=== PATIENT | male | born 1950 | race Caucasian/White ===

== ENCOUNTER 2017-05-07 05:25 | Inpatient (IN) | payer OTHER ==
[2017-04-15 14:06] VITALS: BMI 22.0
--- NOTE | 2017-04-15 14:43 | PAT Medication Instructions ---
Service Date Apr 15, 2017. Current Home Medication List Hydrocodone/Acetaminophen 10MG/325MG ([place] 10MG/325MG), 1 TAB PO BID Omeprazole (Prilosec), 20 MG PO QAM Tramadol (Ultram), 100 MG PO BID Valsartan (Valsartan), 160 MG PO QAM Medication Instructions For Your Scheduled Surgery - Hold the following medications the morning of surgery: Valsartan (Valsartan), 160 MG PO QAM - Take the following medications the morning of surgery with a sip of water OTHERWISE NOTHING TO EAT OR DRINK AFTER MIDNIGHT: Omeprazole (Prilosec), 20 MG PO QAM Hydrocodone/Acetaminophen 10MG/325MG ([place] 10MG/325MG), 1 TAB PO BID (may take if needed up to 4 hours prior to surgery) Tramadol (Ultram), 100 MG PO BID (may take if needed up to 4 hours prior to surgery) - Take the following medications as scheduled the night before surgery: Hydrocodone/Acetaminophen 10MG/325MG ([place] 10MG/325MG), 1 TAB PO BID Tramadol (Ultram), 100 MG PO BID If you have any questions please call us at [phone] or [phone] or [phone]
--- NOTE | 2017-04-15 15:22 | DIAGNOSTIC IMAGING REPORT ---
CHEST 2 VIEWS ROUTINE HISTORY: Preop. COMPARISON: None. FINDINGS: The lungs are hyperexpanded with apical predominant emphysematous changes. The lungs are clear. No pleural effusions. No pneumothorax. The heart is normal in size. IMPRESSION: No acute process. Emphysema. Electronically signed by: Shahzad Harp M.D. 04/15/2017 3:20 PM Dictated Date/Time: 04/15/2017 3:15 PM
[2017-04-15 16:01] LABS: BASO % 0.6 %; BASO ABS # 0.03 K/uL (0-0.2); COMPLETE YES; EOS % 1.2 %; IG% 0.2 %; LYMPH % 28.7 %; LYMPH ABS # 1.43 K/uL (1.2-3.4); MEAN CELL VOLUME 98.1 fL (80-100); MEAN CORPUSCULAR HEMOGLOBIN 35.3 pg (25-34); MEAN CORPUSCULAR HGB CONC 35.9 g/dl (32-36); MEAN PLATELET VOLUME 9.5 fL (7.4-10.4); MONO % 13.8 %; NEUT % 55.5 %; PLATELET COUNT 321 K/uL (130-400); RED BLOOD COUNT 3.77 M/uL (4.7-6.1); WHITE BLOOD COUNT 4.99 K/uL (4.8-10.8)
[2017-04-15 16:06] LABS: URINE APPEARANCE CLEAR (CLEAR); URINE BILIRUBIN NEG (NEG); URINE COLOR YELLOW; URINE EPITHELIAL CELL AUTO 0-5 /lpf (0-5); URINE NITRITE NEG (NEG); URINE PH 6.5 (4.5-7.5); URINE SPECIFIC GRAVITY 1.007 (1.000-1.030); UROBILINOGEN NEG (NEG); ZZUR CULT IF INDIC CLEAN CATCH NO
[2017-04-15 16:10] LABS: BUN/CREATININE RATIO 8.8 (10-20); CALCIUM 9.1 mg/dl (8.5-10.1); CREATININE 1.1 mg/dl (0.60-1.40); POTASSIUM 4.1 mmol/L (3.5-5.1)
[2017-04-15 16:13] LABS: INR 0.9 (0.9-1.1); PARTIAL THROMBOPLASTIN RATIO 1.2; PROTHROMBIN TIME (PATIENT) 10.1 SECONDS (9.0-12.0)
[2017-04-15 16:32] LABS: MANUAL MICROSCOPIC REQUIRED? NO; REVIEW REQ? NO
[2017-04-16 06:23] LABS: ESTIMATED AVERAGE GLUCOSE 105 mg/dl; HA1C FLAG Normal (Normal)
--- NOTE | 2017-05-06 17:48 | HISTORY & PHYSICAL EXAMINATION ---
DATE OF ADMISSION: 05/07/2017 CHIEF COMPLAINT: Chronic left hip pain. HISTORY OF PRESENT ILLNESS: This is a 66-year-old male patient of Dr. Longoria, complaining of chronic left hip pain, longstanding, now progressively getting worse. The patient has been diagnosed with end-stage osteoarthritis per clinical and radiographic exams. He has failed conservative treatment and wishes to proceed with a left total hip arthroplasty. He has tried anti-inflammatories, narcotic medications and the use of a cane. 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 He only has one kidney on the left. SOCIAL HISTORY: Nonsmoker and nondrinker. PAST SURGICAL HISTORY: 1. Right kidney removal. 2. Back surgery. REVIEW OF SYSTEMS: The patient complains of chronic left hip pain. Otherwise, denies any shortness of breath, chest pain, nausea, vomiting or any other joint complaints. FAMILY HISTORY: Noncontributory. MEDICATIONS: Include omeprazole 20 mg daily, valsartan 160 mg daily, and [place] [employer] as needed. ALLERGIES: No known drug allergies. PHYSICAL EXAMINATION: GENERAL: Well-developed and well-nourished 66-year-old male, in no acute distress. He is alert and oriented x3 and pleasant. HEENT: Normocephalic and atraumatic. Extraocular motions are intact. Pupils are equal and reactive to light. HEART: Regular rate and rhythm. No murmurs are appreciated. LUNGS: Clear. ABDOMEN: Soft and nontender. Bowel sounds are present. EXTREMITIES: Left hip reveals mild flexion contracture. He has pain with passive range of motion with log rolling and internal and external rotation at 90/90 degrees. He has 4/5 strength with limited pain. NEUROLOGIC: Neurovascularly, he is intact in his left lower extremity. DIAGNOSES: Left hip end-stage osteoarthritis, hypertension, sleep apnea, osteoarthritis, spine problems, sciatica, acid reflux, and history of right kidney removal. PLAN: The patient was advised of his diagnoses. Indications, risks, benefits, and postop course have all been reviewed. The patient wishes to proceed with a left total hip arthroplasty. Necessary consent forms, preoperative testing and clearances will be obtained.
[2017-05-07] VITALS (11 sets, daily range): BP systolic 118–167; BP diastolic 63–90; PULSE 50–67; TEMP 36.5–36.9; O2SAT 97–100; Ht 175.3 cm; Wt 68.3 kg
[~2017-05-07] VITALS: Ht 175.3 cm; Wt 68.3 kg
[~2017-05-07 05:25] MED LIST: HYDR-4079 PO; PRLSR20 PO; TRAM-10 PO; VALS-58 PO
[2017-05-07] MEDS ORDERED: LACTATED RINGER'S 1000ML 500 ML IV ONE (06:00)
[2017-05-07] MEDS ORDERED: DEXAMETHASONE 4 MG TAB PO SCH (06:00)
[2017-05-07] MEDS ORDERED: CEFAZOLIN 1000MG/55 ML D5W 55 ML IV SCH (06:00)
[2017-05-07] MEDS: TRANEXAMIC ACID INJ 1,000 MG in SODIUM CHLORIDE 0.9% 100ML 100 ML IV SCH ×2 (06:00→06:30)
[2017-05-07] MEDS ORDERED: LACTATED RINGER'S 1000ML IV SCH (06:00)
[2017-05-07] MEDS ORDERED: FAMOTIDINE 20 MG TAB PO SCH (06:00)
[2017-05-07] MEDS ORDERED: CeleBREX 200 MG CAP PO SCH (06:00)
[2017-05-07] MEDS ORDERED: LACTATED RINGER'S 1000ML 1,000 ML IV SCH (06:00)
[2017-05-07] MEDS ORDERED: ACETAMINOPHEN 500 MG TAB PO SCH (06:00)
[2017-05-07] MEDS ORDERED: METOCLOPRAMIDE HCL 10 MG TAB PO SCH (06:00)
[2017-05-07] MEDS ORDERED: ROPIVACAINE 5MG/ML 30 ML 150 MG, BUPIVACAINE/EPINEPHR 0.5% MPF 30 ML, KETOROLAC TROMETH... INFIL SCH ×6 (06:00)
[2017-05-07] MEDS ORDERED: GABAPENTIN 300 MG CAP PO SCH (06:00)
[2017-05-07] MEDS ORDERED: MIDAZOLAM HCL 1 MG/ML 2ML VIAL ONE (06:25)
[2017-05-07] MEDS ORDERED: LIDOCAINE HCL 2% 2 ML VIAL (20MG/ML) ONE (06:25)
[2017-05-07] MEDS ORDERED: PROPOFOL IV EMULSION 10 MG/ML 20 ML VIAL IV ONE ×2 (06:25→08:57)
[2017-05-07] MEDS ORDERED: FENTANYL CITRATE INJ 50 MCG/1 ML 2 ML VIAL ONE (06:25)
[2017-05-07] MEDS ORDERED: BUPIVACAINE 0.5 % 5 MG/1 ML PF 10ML VIAL ONE (06:30)
[2017-05-07] MEDS ORDERED: BACITRACIN 50000 UNIT VIAL ONE (07:04)
[2017-05-07] MEDS ORDERED: POVIDONE-IODINE OP SOLN 30 ML BTL ONE (07:04)
[2017-05-07] MEDS ORDERED: ORTHO JOINT ANESTHETIC ONE (07:04)
--- NOTE | 2017-05-07 07:25 | History & Physical Bridge Note ---
H&P Re-Evaluation Bridge Note: I have examined the patient, reviewed the History & Physical and in the interval since the performance of the History & Physical I have noted the following changes of clinical significance: No changes noted
[2017-05-07] MEDS ORDERED: EpHEDrine SULFATE INJ 50 MG/ML AMP IV PRN (08:15)
[2017-05-07] MEDS ORDERED: FENTANYL CITRATE INJ 50 MCG/1 ML 2 ML VIAL IV PRN (08:15)
[2017-05-07] MEDS ORDERED: ONDANSETRON INJ 2 MG/ML 2 ML VIAL IV PRN ×2 (08:15→10:00)
[2017-05-07] MEDS ORDERED: ATROPINE SULFATE 0.1 MG/ML 5ML SYR IV PRN (08:15)
--- NOTE | 2017-05-07 09:38 | [facility] Post Operative Brief Note ---
Immediate Operative Summary Operative Date May 07, 2017. Pre-Operative Diagnosis Left hip end-stage osteoarthritis Post-Operative Diagnosis Left hip end-stage osteoarthritis,chronic abductor tear Procedure(s) Performed Left total hip arthroplasty,abductor repair Surgeon Dr. Longoria Assistant Softball Coach Surgeon(s) Dipak Omer PA-C Estimated Blood Loss 50cc Findings end stage oa synovitis abductor tear chronic Specimens A. Left femoral head Drains 2 hemovac Complication(s) None Disposition Recovery Room / PACU
[2017-05-07] MEDS ORDERED: ZOLPIDEM TARTRATE 5 MG TAB PO PRN (10:00)
[2017-05-07] MEDS ORDERED: TRAMADOL HCL 50 MG TAB PO PRN (10:00)
[2017-05-07] MEDS ORDERED: MoRPHine SULFATE 2 MG/ML CARP IV PRN (10:00)
[2017-05-07] MEDS ORDERED: BISACODYL 10 MG SUPP PR PRN (10:00)
[2017-05-07] MEDS ORDERED: MAGNESIUM HYDROXIDE SUSP 30 ML UDC PO PRN (10:00)
--- NOTE | 2017-05-07 10:26 | Anesthesiology Progress Note ---
Anesthesia Post Op Note Date & Time May 07, 2017 at 10:26 Vital Signs Pain Intensity: 0 Vital Signs Past 12 Hours Date Time Temp Pulse Resp B/P (MAP) Pulse Ox O2 Delivery O2 Flow Rate FiO2 05/07/17 10:10 50 12 139/79 100 Oxymask 10 05/07/17 10:00 36.5 60 20 144/74 100 Oxymask 10 05/07/17 05:50 36.6 60 20 157/86 100 Room Air Notes Mental Status: alert / awake / arousable, participated in evaluation Pt Amnestic to Procedure: Yes Nausea / Vomiting: adequately controlled Pain: adequately controlled Airway Patency, RR, SpO2: stable & adequate BP & HR: stable & adequate Hydration State: stable & adequate Neuraxial Anesthesia: was administered, sensory block is resolving Anesthetic Complications: no major complications apparent
--- NOTE | 2017-05-07 10:30 | DIAGNOSTIC IMAGING REPORT ---
LEFT PELVIS/UNILATERAL HIP 1 VIEW CLINICAL HISTORY: 66 years-old Male presenting with left degenerative hip disease. TECHNIQUE: Single frontal view of the pelvis and crosstable lateral view of the left hip were obtained. COMPARISON: None. FINDINGS: Postsurgical changes of total left hip arthroplasty. Surgical drain in place. Soft tissue emphysema and overlying skin stacey noted. The superior acetabulum has an abnormal radiolucency raising concern for fracture. Partially visualized lower lumbar fusion hardware. Remainder of pelvis within normal limits. IMPRESSION: Postsurgical changes of total left hip arthroplasty. Abnormal radiolucency along the superior acetabulum raising concern for fracture. Further evaluation with cross-sectional imaging to be considered. Electronically signed by: Brian Amor M.D. 05/07/2017 10:29 AM Dictated Date/Time: 05/07/2017 10:28 AM
[2017-05-07] MEDS ORDERED: MoRPHine SULFATE 4 MG/ML 1 ML CARP\\VIAL IV PRN (11:45)
[2017-05-07] MEDS: D5W AND 1/2NSS + 20MEQ KCL 1,000 ML IV SCH ×2 (11:49→21:39)
[2017-05-07] MEDS: OXYCODONE HCL IR 5 MG TAB (IMMEDIATE RELEASE) PO PRN ×4 (13:17→23:25)
[2017-05-07] MEDS: ACETAMINOPHEN 500 MG TAB PO SCH ×2 (14:06→21:39)
[2017-05-07] MEDS ORDERED: PNEUMOCOCCAL POLYSACCHARIDES 25 MCG/0.5 ML VIAL/SYR IM. ONE (14:45)
[2017-05-07] MEDS ORDERED: PNEUMOCOCCAL ADMINISTRATION CHARGE ONE (14:45)
--- NOTE | 2017-05-07 15:20 | Progress Note ---
Subjective Date of Service: May 07, 2017. Subjective Pt evaluation today including: conversation w/ patient, conversation w/ family , physical exam, chart review, lab review, review of inpatient medication list feeling good no complaints. discussed role of hospitalist in medical management. discussed HTN. then discussed low Na noted on preop labs - notes that PCP saw this, ordered a recheck, but he hasn't heard since. on directed questioning he () note that he does drink a lot of beer - ~4-5 nights a week he'll go to the club or a friend's house and then it's not uncommon for him to drink a six pack. doesn't keep beer at home. does have wine and liquor but notes that he basically never drinks at home. relates that the guys around him basically are doing the same thing, doesn't make much of the idea of drinking 6 beers in one night being excessive, notes actually "i'll go over to watch the pens and have a six pack, but it's never more than a six pack" also notes he believes he's got BPH - hesitancy and weaker stream, occassional frequency Problem List Medical Problems: (1) Encounter for wound re-check Status: Acute Review of Systems ros otherwise negative except for as above Objective Vital Signs Date Time Temp Pulse Resp B/P (MAP) Pulse Ox O2 Delivery O2 Flow Rate FiO2 05/07/17 14:00 58 16 146/81 (102) 100 05/07/17 13:00 58 16 160/89 (112) 99 05/07/17 11:51 50 16 167/82 (110) 100 Nasal Cannula 1.0 05/07/17 11:30 52 16 164/90 (114) 100 05/07/17 10:55 99 Nasal Cannula 2.0 05/07/17 10:55 Nasal Cannula 2.0 05/07/17 10:55 36.7 56 16 135/80 (98) 99 Nasal Cannula 2.0 05/07/17 10:45 51 16 123/75 99 Nasal Cannula 2 05/07/17 10:30 37.1 50 16 137/76 99 Nasal Cannula 2 05/07/17 10:20 52 20 140/74 100 Oxymask 10 05/07/17 10:10 50 12 139/79 100 Oxymask 10 05/07/17 10:00 36.5 60 20 144/74 100 Oxymask 10 05/07/17 05:50 36.6 60 20 157/86 100 Room Air Physical Exam General Appearance: no apparent distress Eyes: EOMI ENT: hearing grossly normal Neck: trachea midline Respiratory/Chest: no respiratory distress, no accessory muscle use Neurologic/Psychiatric: 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 no specific treatment at this time, hopefully will follow through w cessation EtOH abuse -follow for withdrawal -thiamine, folate BPH w LUTS -flomax and proscar, outpt f/u DVT proph -per ortho
[2017-05-07] MEDS ORDERED: LORAZEPAM 2 MG/ML 1 ML VIAL IV PRN (15:30)
[2017-05-07] MEDS ORDERED: LORAZEPAM 1 MG TAB PO PRN (15:30)
[2017-05-07] MEDS ORDERED: THIAMINE HCL 100 MG TAB PO ONE (16:00)
[2017-05-07] MEDS ORDERED: LORAZEPAM INJ 1 MG in SYRINGE 0.5 ML IV PRN (16:00)
[2017-05-07] MEDS ORDERED: TAMSULOSIN HCL 0.4 MG CAP PO ONE (16:00)
[2017-05-07] MEDS: CEFAZOLIN IV 1,000 MG in DEXTROSE 5% 50ML 50 ML IV SCH ×2 (16:20→23:25)
[2017-05-07] MEDS: TAMSULOSIN HCL 0.4 MG CAP PO SCH (20:50)
[2017-05-07] MEDS: ASPIRIN 81 MG ECTAB PO SCH (20:50)
[2017-05-07] MEDS: DOCUSATE SODIUM 100 MG CAP PO SCH (20:50)
[2017-05-07] MEDS: OXYCODONE HCL 10 MG TABCR (OXYCONTIN) PO SCH (20:50)
[2017-05-08] VITALS (7 sets, daily range): BP systolic 120–133; BP diastolic 71–80; PULSE 56–79; TEMP 36.7–36.9; O2SAT 95–100
[2017-05-08] MEDS ORDERED: PANTOprazole SOD 40 MG TAB PO SCH
--- NOTE | 2017-05-08 02:04 | OPERATIVE REPORT ---
DATE OF OPERATION: 05/07/2017 INDICATION FOR PROCEDURE: The patient is a 66-year-old male with chronic progressive pain in his left hip, diagnosed with osteoarthritis both of his hips radiographically, left hip has severe osteoarthritis. He has superior lateral subluxation, bone on bone, some bone loss noted at this time. PREOPERATIVE DIAGNOSIS: End-stage osteoarthritis, left hip. 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 PROCEDURE: Left total hip arthroplasty and repair of chronic abductor tear gluteus medius. SURGEON: Constantino Longoria MD [facility] [employer] TECHNICIAN: RAQUEL Jackson ANESTHESIA: Spinal and IV sedation. OPERATIVE PROCEDURE: The patient was taken to the operating room, anesthetized under IV sedation and spinal anesthetic. He was placed supine on the operating room table. He was placed onto a sacral pad. He had a towel roll placed under his lumbar spine for support. His left foot was placed on to a foot roll to flex his knee 90 degrees and hip 60 degrees as needed. The bed was placed in some Trendelenburg and tilted to the right which exposed the left acetabulum. The left hip was sterilely prepped and draped in usual sterile fashion. The patient is a thin individual and actually had reasonably good range of motion despite the severity of his osteoarthritis. After the hip was sterilely prepped and draped with ChloraPrep, a longitudinal incision was made over the lateral hip. A Hardinge type approach was performed to the left hip. Skin was incised sharply. Subcutaneous flaps were elevated. The fascia irma was divided longitudinally and the gluteus chapis fascia was split proximally. This revealed chronic trochanteric bursitis with a crescent-shaped tear of the gluteus medius at the greater trochanter, made into the region. Tear was about 3 cm wide. The gluteus medius was then split between its anterior 40% and posterior 60% and then minimus was split and divided off the capsule inferiorly and then the capsule was divided down to the hip joint revealing synovitis of hip, joint effusion and superior lateral subluxation of the hip. There is grade 4 DJD in the hip joint. An incision was made releasing the adductor tendon that remained incorporating the chronic tear into our gluteus medius takedown and then splitting the vastus lateralis to about 3 cm. Muscular capsular flap was elevated off the hip joint and neck of the femur. The hip was then dislocated with flexion and external rotation. The Edgard Accolade II tapered stem was used. We used a cutting guide for that stem to make a cut 15 mm proximal to the lesser trochanter in neutral anteversion. Head and neck fragment were removed and measured about 52 mm in diameter. Head had peripheral osteophytes with exposed eburnated bone. At this time, we released the anterior capsule, and resected some of the capsule that was marked thickened synovium in the remaining joint that was excised. Soft tissue in the acetabular fossa was resected to visualize the inner table, and then some of the large osteophytes were resected and the acetabular labrum was resected sharply. We placed a double angled inferior ischial retractor and a blunt Evette retractor anteriorly. We did use a self-retaining superior retractor and was impacted directly into the ileum. The acetabulum had good exposure. At this time, first we used a 46 mm diameter reamer to medialize the reaming to the inner table then increased sizd reamers in sequential increments up to a 54, which had good fit and fill. We chose PSL cup. A 54 PSL cup was impacted in position at approximately 45 degrees of abduction and 15 degrees of anteversion. With tight press fit, we did put additional two 6.5 mm screws in the posterior superior quadrant, 20 and 25 mm screws were used. Excellent fixation was obtained. Then we used the 36 mm 10 degree offset liner with the offset posterior inferiorly placed. The liner was assessed to be stable. Then attention was taken to the femoral preparation. A box osteotome was first used followed by a canal reamer, followed by sequential broaches up to a size 5, which had good fit and fill, and 132 degree neck angle was chosen based on preoperative templating. A +0 neck length gave equal leg lengths and stability through full range of motion and soft tissue tension on the gluteus medius was satisfactory. The trials were removed, and after further irrigation with antibiotic solution the final component was impacted in position. We used the Accolade II size 5 stem, 132 degree neck angle. Then the Biolox ceramic 36 mm head was placed on to that. This was reduced to the acetabulum, verified leg lengths and stability and then repaired the gluteus medius. The medius was repaired with transosseous transtrochanteric #5 FiberWire sutures. These were placed with Migel-Robi suture technique through the gluteus medius tendon. We used some lateral row interrupted #2 Fiberwire suture and [id number] sutures where there was tissue available for lateral row fixation. The minimus was repaired with xulbuj-lr-bqoyf #1 Vicryl sutures and then the split in the medius was repaired with interrupted atgotw-om-cahnf #1 Vicryl sutures. The vastus lateralis split was closed with fksvnn-ak-wkzbo #1 Vicryl sutures. The abductor repair was secure. Then went ahead and repaired the fascia irma and the gluteus chapis fascia with pwlwnp-ie-koqak #1 Vicryl sutures. Subcutaneous tissues closed with interrupted 2-0 Vicryl and the skin was closed with stacey. We did place 2 Hemovac drains into the joint and brought out laterally prior to closure. We also did a Betadine soak and we also did an Orthomix injection. The blood loss was estimated about 100 mL and patient tolerated the procedure well. RAQUEL Jackson was my assistant winemaker. He functioned as family and divorce legal assistant for the entire procedure. He assisted in leg positioning, soft tissue retraction, instrument management and he performed the outer fascial and subcutaneous closure and skin closure, and will participate in postoperative care. I attest to the content of the Intraoperative Record and any orders documented therein. Any exceptions are noted below. PÉREZ
[2017-05-08] MEDS: OXYCODONE HCL IR 5 MG TAB (IMMEDIATE RELEASE) PO PRN ×4 (04:04→17:52)
[2017-05-08] MEDS: ACETAMINOPHEN 500 MG TAB PO SCH ×3 (05:58→21:37)
[2017-05-08 06:25] LABS: BASO % 0.1 %; BASO ABS # 0.01 K/uL (0-0.2); COMPLETE YES; EOS % 0.3 %; HEMATOCRIT 27.9 % (42-52); IG% 0.1 %; LYMPH % 19.6 %; LYMPH ABS # 1.75 K/uL (1.2-3.4); MEAN CELL VOLUME 98.9 fL (80-100); MEAN CORPUSCULAR HEMOGLOBIN 35.5 pg (25-34); MEAN CORPUSCULAR HGB CONC 35.8 g/dl (32-36); NEUT % 68.9 %; PLATELET COUNT 252 K/uL (130-400); RED BLOOD COUNT 2.82 M/uL (4.7-6.1); WHITE BLOOD COUNT 8.91 K/uL (4.8-10.8)
[2017-05-08 06:53] LABS: BUN/CREATININE RATIO 13.2 (10-20); CALCIUM 8.4 mg/dl (8.5-10.1); CREATININE 1.3 mg/dl (0.60-1.40); POTASSIUM 4.3 mmol/L (3.5-5.1)
[2017-05-08] MEDS: D5W AND 1/2NSS + 20MEQ KCL 1,000 ML IV SCH (08:00)
--- NOTE | 2017-05-08 08:12 | Orthopedic Progress Note ---
Orthopedic Progress Note Date of Service May 08, 2017. Subjective Post OP Day: 1 Reports: feeling well, pain controlled w PO medications, Denies: complaints, chest pain, SOB, nausea / vomiting, light headedness, calf pain Additional Notes: Na+ 131 Objective calves soft nontender, N/V intact, capillary refill less than 2 sec., dressing C /D/I, A&O x3, toes mobile Date Time Temp Pulse Resp B/P (MAP) Pulse Ox O2 Delivery O2 Flow Rate FiO2 05/08/17 04:00 36.8 59 16 133/79 (97) 100 Room Air 05/07/17 23:25 Room Air 05/07/17 22:48 36.8 67 16 118/63 (81) 99 Room Air 05/07/17 20:44 36.9 63 16 120/71 (87) 97 Room Air 05/07/17 19:13 36.6 64 16 146/79 (101) 99 Room Air 05/07/17 16:00 99 Nasal Cannula 1.0 05/07/17 15:13 36.5 55 16 146/79 (101) 99 Nasal Cannula 1.0 05/07/17 14:00 58 16 146/81 (102) 100 05/07/17 13:00 58 16 160/89 (112) 99 05/07/17 11:51 50 16 167/82 (110) 100 Nasal Cannula 1.0 05/07/17 11:30 52 16 164/90 (114) 100 05/07/17 10:55 99 Nasal Cannula 2.0 05/07/17 10:55 Nasal Cannula 2.0 05/07/17 10:55 36.7 56 16 135/80 (98) 99 Nasal Cannula 2.0 05/07/17 10:45 51 16 123/75 99 Nasal Cannula 2 05/07/17 10:30 37.1 50 16 137/76 99 Nasal Cannula 2 05/07/17 10:20 52 20 140/74 100 Oxymask 10 05/07/17 10:10 50 12 139/79 100 Oxymask 10 05/07/17 10:00 36.5 60 20 144/74 100 Oxymask 10 Laboratory Results 24 Hours: Test 05/08/17 05:34 White Blood Count 8.91 K/uL Red Blood Count 2.82 M/uL Hemoglobin 10.0 g/dL Hematocrit 27.9 % Mean Corpuscular Volume 98.9 fL Mean Corpuscular Hemoglobin 35.5 pg Mean Corpuscular Hemoglobin Concent 35.8 g/dl Platelet Count 252 K/uL Mean Platelet Volume 9.0 fL Neutrophils (%) (Auto) 68.9 % Lymphocytes (%) (Auto) 19.6 % Monocytes (%) (Auto) 11.0 % Eosinophils (%) (Auto) 0.3 % Basophils (%) (Auto) 0.1 % Neutrophils # (Auto) 6.13 K/uL Lymphocytes # (Auto) 1.75 K/uL Monocytes # (Auto) 0.98 K/uL Eosinophils # (Auto) 0.03 K/uL Basophils # (Auto) 0.01 K/uL Assessment & Plan Assessment: POD #1, Left ZAY ETOH abuse Plan: PT/ OT DVT proph- ASA D/C planning- Home w HH likely Friday Monitor signs of withdrawal Appreciate medicine input. Inhouse Planning Pain Management: Oxycontin, Morphine, PO Tylenol, Oxy IR DVT Prophylaxis: TEDs, SCDs, ASA Discharge Planning Discharge Planning: home with home health Pain Management: Oxycontin, PO Tylenol, Oxy IR DVT Prophylaxis: TEDs, ASA Therapy: Physical Therapy, Occupational Therapy
--- NOTE | 2017-05-08 08:13 | Discharge Instructions ---
Discharge Instructions Date of Service May 08, 2017. Admission Reason for Admission: Left Hip Degenerative Joint Disease Discharge Discharge Diagnosis / Problem: Left ZAY Discharge Goals Goal(s): Improve function Activity Recommendations Activity Limitations: as noted below . Instructions / Follow-Up Instructions / Follow-Up ACTIVITY RECOMMENDATIONS: SELF CARE INSTRUCTIONS AFTER TOTAL HIP REPLACEMENT Until the incision and soft tissues around your hip have healed, there is a possibility that the hip prosthesis could dislocate. A. Observe the following precautions to prevent dislocation: 1. Don't bend your hip greater than 90 degrees. 2. Avoid crossing your legs or ankles while standing or lying. 3. Sit with your feet placed 6 inches apart. 4. When sitting, keep your knees below your hips. Sit on a firm surface, avoid deep, soft chairs and couches. Use an elevated toilet seat in the bathroom. 5. Don't bend over at the waist. Use a long handled shoehorn and a sock aid to help you put on your shoes and socks. A water manager can help you pickle solution maker objects that are too high or too low to reach. 6. Keep car riding to a minimum for at least one month after surgery. B. Your balance may be shaky for a while. Use crutches or a walker until directed by your doctor. C. Use hand rails when walking on stairs. D. Wear low heeled shoes with non-slip soles. E. Be sure that your floors are free of things that could trip you - throw rugs , electrical cords, small objects. Avoid wet and waxed floors, especially with crutches and canes. F. Try to walk several times a day with rest periods between. G. Continue with all the exercises taught to you in the hospital. Again, make walking a part of your daily routine. SPECIAL CARE INSTRUCTIONS: VERY IMPORTANT TO READ AND REVIEW A. You may still be at risk for phlebitis and blood clots. 1. Wear surgical stockings (AUDREY hose) for 2 weeks after surgery to improve circulation and reduce swelling. 2. Take Aspirin 81mg twice daily for 4 weeks or as directed by your doctor. This is your blood thinner. 3. High risk patients may be prescribed a stronger blood thinner if necessary. 4. If you are on Coumadin normally, your family doctor/deep fat cook fry should monitor your blood work. Expect a phone call the day of or the day after bloodwork is drawn to adjust your dosage. B. You must take antibiotics before having dental work, bladder, bowel and other surgery. Your doctor will provide you with a permanent card to carry describing precautions. C. Call [facility] if you have a fever, redness or swelling around the incision, cloudy drainage from incision, or sudden increase in pain in your hip, not relieved by your regular pain medication. D. Please call the office at if you have any concerns or questions about your operation or recovery. * YOU MAY SHOWER, NO TUB BATHS UNTIL CLEARED BY YOUR DOCTOR. * WEAR AUDREY HOSE 20 HOURS PER DAY FOR 2 WEEKS. * YOU SHOULD USE A WALKER OR CRUTCHES FOR 2-4 WEEKS. THIS WILL HELP PREVENT STRAIN ON YOUR HIP MUSCLE AND ALLOW IT TO HEAL PROPERLY. YOU MAY WEAN TO A CANE TOLERATED. * MOST PATIENTS WILL HAVE HOME NURSING FOR THERAPY. IF YOU DECIDE TO DO OUTPATIENT PHYSICAL THERAPY, PLEASE SCHEDULE THIS 3 TIMES PER WEEK. * YOU MAY HAVE A LARGE, BAND-SEBASTIAN LIKE DRESSING (SILVERON). THIS WILL REMAIN ON YOUR INCISION FOR 7 DAYS, THEN CAN BE REMOVED. IF INCISION IS LEAKING THROUGH DRESSING, PLEASE CALL THE OFFICE . FOLLOW UP VISIT: If appointment is not already scheduled: Please call [facility] to make a follow-up appointment for 2 weeks after your surgery at . Current Hospital Diet Patient's current hospital diet: Regular Diet Discharge Diet Recommended Diet: Regular Diet Procedures Procedures Performed: Left total hip arthroplasty,abductor repair Pending Studies Studies pending at discharge: no Laboratory Results Hemoglobin A1c Test 04/15/17 14:49 Range/Units Estimated Average Glucose 105 mg/dl Hemoglobin A1c 5.3 4.5-5.6 % Medical Emergencies . Who to Call and When: Medical Emergencies: If at any time you feel your situation is an emergency, please call 911 immediately. . Non-Emergent Contact Non-Emergency issues call your: Primary Care Provider . "Provider Documentation" section prepared by Dipak Omer. . VTE Core Measure Inpt VTE Proph given/why not?: Other Anticoagulation (asa), T.E.Aden Gomez, SCD's [place] Drug Monitoring Program Search Results: patient reviewed within database, no issues identified
[2017-05-08] MEDS: ASPIRIN 81 MG ECTAB PO SCH ×2 (08:38→21:25)
[2017-05-08] MEDS: DOCUSATE SODIUM 100 MG CAP PO SCH ×2 (08:39→21:25)
[2017-05-08] MEDS: MULTIVITAMIN TAB PO SCH (08:39)
[2017-05-08] MEDS: THIAMINE HCL 100 MG TAB PO SCH (08:39)
[2017-05-08] MEDS: PANTOprazole SOD 40 MG TAB PO SCH (08:39)
[2017-05-08] MEDS: FINASTERIDE 5 MG TAB PO SCH (08:39)
[2017-05-08] MEDS: OXYCODONE HCL 10 MG TABCR (OXYCONTIN) PO SCH ×2 (08:40→21:25)
--- NOTE | 2017-05-08 08:55 | Anesthesiology Progress Note ---
Anesthesia Post Op Note Date & Time May 08, 2017 at 08:54 Vital Signs Pain Intensity: 3 Vital Signs Past 12 Hours Date Time Temp Pulse Resp B/P (MAP) Pulse Ox O2 Delivery O2 Flow Rate FiO2 05/08/17 08:36 95 Room Air 05/08/17 07:45 36.7 56 14 120/76 (91) 95 Room Air 05/08/17 07:30 Room Air 05/08/17 04:00 36.8 59 16 133/79 (97) 100 Room Air 05/07/17 23:25 Room Air 05/07/17 22:48 36.8 67 16 118/63 (81) 99 Room Air Notes Mental Status: alert / awake / arousable Pt Amnestic to Procedure: Yes Nausea / Vomiting: adequately controlled Pain: adequately controlled Airway Patency, RR, SpO2: stable & adequate BP & HR: stable & adequate Hydration State: stable & adequate Neuraxial Anesthesia: sensory block resolved
[2017-05-08] MEDS ORDERED: VALSARTAN 80 MG TAB PO SCH (09:00)
--- NOTE | 2017-05-08 09:00 | Hospitalist Progress Note ---
Hospitalist Progress Note Date of Service May 08, 2017. (Yuki Sherman PA-C) Subjective Pt evaluation today including: conversation w/ patient, physical exam, chart review, lab review, review of studies Pain: 1 Left hip PO Intake: Good Voiding: no voiding problems The patient was seen and examined this morning. Pt reports doing very well. He has no acute complaints. His pain is minimal to none, and he has been up and walked 2 laps with PT this morning. He is eating and drinking without difficulty , no BM yet but had one yesterday. Constitutional: No fever, No chills, No sweats Eyes: No redness, No diplopia ENT: No nasal symptoms, No trouble swallowing Respiratory: No shortness of breath, No dyspnea on exertion Cardiovascular: No chest pain, No palpitations Abdomen: No pain, No nausea, No vomiting, No diarrhea, No constipation Musculoskeletal: No joint pain, No muscle pain, No swelling Neurologic: No weakness, No numbness/tingling Endo: No fatigue Skin: No rash, No itch (Yuki Sherman, GAMAL) Objective Vital Signs Date Time Temp Pulse Resp B/P (MAP) Pulse Ox O2 Delivery O2 Flow Rate FiO2 05/08/17 08:36 95 Room Air 05/08/17 07:45 36.7 56 14 120/76 (91) 95 Room Air 05/08/17 07:30 Room Air 05/08/17 04:00 36.8 59 16 133/79 (97) 100 Room Air 05/07/17 23:25 Room Air 05/07/17 22:48 36.8 67 16 118/63 (81) 99 Room Air 05/07/17 20:44 36.9 63 16 120/71 (87) 97 Room Air 05/07/17 19:13 36.6 64 16 146/79 (101) 99 Room Air 05/07/17 16:00 99 Nasal Cannula 1.0 05/07/17 15:13 36.5 55 16 146/79 (101) 99 Nasal Cannula 1.0 05/07/17 14:00 58 16 146/81 (102) 100 05/07/17 13:00 58 16 160/89 (112) 99 05/07/17 11:51 50 16 167/82 (110) 100 Nasal Cannula 1.0 05/07/17 11:30 52 16 164/90 (114) 100 05/07/17 10:55 99 Nasal Cannula 2.0 05/07/17 10:55 Nasal Cannula 2.0 05/07/17 10:55 36.7 56 16 135/80 (98) 99 Nasal Cannula 2.0 05/07/17 10:45 51 16 123/75 99 Nasal Cannula 2 05/07/17 10:30 37.1 50 16 137/76 99 Nasal Cannula 2 05/07/17 10:20 52 20 140/74 100 Oxymask 10 05/07/17 10:10 50 12 139/79 100 Oxymask 10 05/07/17 10:00 36.5 60 20 144/74 100 Oxymask 10 (Yuki Sherman PA-C) Physical Exam General Appearance: WD/WN, no apparent distress Eyes: PERRL, EOMI ENT: hearing grossly normal, pharynx normal Neck: supple, thyroid normal Respiratory/Chest: lungs clear, normal breath sounds, no respiratory distress, no accessory muscle use, + pertinent finding (on room air) Cardiovascular: regular rate, rhythm, no murmur Abdomen: normal bowel sounds, non tender, soft Extremities: non-tender, no calf tenderness, + pertinent finding (Left hip dressing C/D/I, hemovac in place. Minimal pedal edema in the LLE, no edema of RLE.) Neurologic/Psychiatric: alert, normal mood/affect, oriented x 3 Skin: normal color, warm/dry (Yuki Sherman PA-C) Laboratory Results Last 24 Hours Test 05/08/17 05:34 White Blood Count 8.91 K/uL Red Blood Count 2.82 M/uL Hemoglobin 10.0 g/dL Hematocrit 27.9 % Mean Corpuscular Volume 98.9 fL Mean Corpuscular Hemoglobin 35.5 pg Mean Corpuscular Hemoglobin Concent 35.8 g/dl Platelet Count 252 K/uL Mean Platelet Volume 9.0 fL Neutrophils (%) (Auto) 68.9 % Lymphocytes (%) (Auto) 19.6 % Monocytes (%) (Auto) 11.0 % Eosinophils (%) (Auto) 0.3 % Basophils (%) (Auto) 0.1 % Neutrophils # (Auto) 6.13 K/uL Lymphocytes # (Auto) 1.75 K/uL Monocytes # (Auto) 0.98 K/uL Eosinophils # (Auto) 0.03 K/uL Basophils # (Auto) 0.01 K/uL RDW Standard Deviation 44.7 fL RDW Coefficient of Variation 12.4 % Immature Granulocyte % (Auto) 0.1 % Immature Granulocyte # (Auto) 0.01 K/uL Sodium Level 131 mmol/L Potassium Level 4.3 mmol/L Chloride Level 102 mmol/L Carbon Dioxide Level 23 mmol/L Anion Gap 6.0 mmol/L Blood Urea Nitrogen 17 mg/dl Creatinine 1.30 mg/dl Est Creatinine Clear Calc Drug Dose 54.0 ml/min Estimated GFR () 65.9 Estimated GFR (Non- 56.9 BUN/Creatinine Ratio 13.2 Random Glucose 108 mg/dl Calcium Level 8.4 mg/dl (Yuki Sherman, PA-C) Assessment and Plan 66 yo M s/p Left total hip arthroplays and 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 Longoria on 05/07/17 - Analgesia and bowel regimen per primary team - Hgb drop from 13.3- 10 today, follow cbc tomorrow am. Pt is asymptomatic- no lightheadedness, dizziness, cp, sob. - Planning on home health services, lives with his , anticipated discharge tomorrow. HTN -hold Valsartan 160 mg QAM for now since BP is 120/80 today, likely can resume tomorrow. -follow vitals, can treat prn if markedly elevated Beer potomania, hyponatremia - extensive discussion. no specific treatment at this time, hopefully will follow through w cessation - NA+ improving today EtOH abuse -follow for withdrawal -thiamine, folate BPH w LUTS -flomax and proscar, outpt f/u DVT ppx: ASA 81 mg BID per ortho Disposition: Planned for home health and discharge tomorrow. (Yuki Sherman, PA-C) I agree with PA assessment and plan and have seen and examined pt myself Resting comfortably in bed VSS Labs reviewed Hyponatremia improving No concerns at this time Pain controlled Stable for DC home when ok with primary team (Chaarn Colby D.O.)
[2017-05-08] MEDS ORDERED: NURSING VERBAL MED ORDER ONE (13:45)
[2017-05-08] MEDS: TAMSULOSIN HCL 0.4 MG CAP PO SCH (21:25)
[2017-05-09] MEDS: OXYCODONE HCL IR 5 MG TAB (IMMEDIATE RELEASE) PO PRN ×3 (00:25→12:08)
[2017-05-09] MEDS: ACETAMINOPHEN 500 MG TAB PO SCH ×2 (05:36→14:00)
[2017-05-09 06:01] VITALS: BP 149/82; PULSE 73; TEMP 36.6; O2SAT 97
[2017-05-09 06:13] LABS: BASO % 0.6 %; BASO ABS # 0.04 K/uL (0-0.2); EOS % 1.2 %; HEMATOCRIT 25.3 % (42-52); IG% 0.1 %; LYMPH % 23.5 %; LYMPH ABS # 1.57 K/uL (1.2-3.4); MEAN CELL VOLUME 99.2 fL (80-100); MEAN CORPUSCULAR HEMOGLOBIN 34.9 pg (25-34); MEAN CORPUSCULAR HGB CONC 35.2 g/dl (32-36); MEAN PLATELET VOLUME 9.2 fL (7.4-10.4); MONO % 12.9 %; NEUT % 61.7 %; PLATELET COUNT 267 K/uL (130-400); RED BLOOD COUNT 2.55 M/uL (4.7-6.1); WHITE BLOOD COUNT 6.67 K/uL (4.8-10.8)
[2017-05-09 06:54] LABS: BUN/CREATININE RATIO 18.1 (10-20); CALCIUM 8.3 mg/dl (8.5-10.1); POTASSIUM 4.5 mmol/L (3.5-5.1)
[2017-05-09] MEDS: OXYCODONE HCL 10 MG TABCR (OXYCONTIN) PO SCH (07:44)
[2017-05-09] MEDS: DOCUSATE SODIUM 100 MG CAP PO SCH (07:44)
[2017-05-09] MEDS: PANTOprazole SOD 40 MG TAB PO SCH (07:45)
[2017-05-09] MEDS: FINASTERIDE 5 MG TAB PO SCH (07:45)
[2017-05-09] MEDS: ASPIRIN 81 MG ECTAB PO SCH (07:45)
[2017-05-09] MEDS: MULTIVITAMIN TAB PO SCH (07:45)
[2017-05-09] MEDS: THIAMINE HCL 100 MG TAB PO SCH (07:45)
[2017-05-09 07:51] LABS: COMPLETE YES
--- NOTE | 2017-05-09 12:56 | Orthopedic Progress Note ---
Orthopedic Progress Note Date of Service May 09, 2017. Subjective Post OP Day: 2 Reports: feeling well, pain controlled w PO medications, Denies: complaints, chest pain, SOB, nausea / vomiting, light headedness, calf pain Objective calves soft nontender, N/V intact, hip located, capillary refill less than 2 sec., dressing C/D/I, A&O x3, toes mobile Date Time Temp Pulse Resp B/P (MAP) Pulse Ox O2 Delivery O2 Flow Rate FiO2 05/09/17 07:45 Room Air 05/09/17 06:01 36.6 73 17 149/82 (104) 97 Room Air 05/09/17 00:15 Room Air 05/08/17 23:08 36.9 79 16 120/71 (87) 97 Room Air 05/08/17 16:12 36.8 64 16 133/80 (97) 99 Room Air 05/08/17 16:00 98 Room Air Laboratory Results 24 Hours: Test 05/09/17 05:12 White Blood Count 6.67 K/uL Red Blood Count 2.55 M/uL Hemoglobin 8.9 g/dL Hematocrit 25.3 % Mean Corpuscular Volume 99.2 fL Mean Corpuscular Hemoglobin 34.9 pg Mean Corpuscular Hemoglobin Concent 35.2 g/dl Platelet Count 267 K/uL Mean Platelet Volume 9.2 fL Neutrophils (%) (Auto) 61.7 % Lymphocytes (%) (Auto) 23.5 % Monocytes (%) (Auto) 12.9 % Eosinophils (%) (Auto) 1.2 % Basophils (%) (Auto) 0.6 % Neutrophils # (Auto) 4.11 K/uL Lymphocytes # (Auto) 1.57 K/uL Monocytes # (Auto) 0.86 K/uL Eosinophils # (Auto) 0.08 K/uL Basophils # (Auto) 0.04 K/uL Assessment & Plan Assessment: POD #2, Left ZAY ETOH abuse Plan: PT/ OT DVT proph- ASA D/C planning- Home w HH likely Friday Monitor signs of withdrawal Appreciate medicine input. Inhouse Planning Pain Management: Oxycontin, Morphine, PO Tylenol, Oxy IR DVT Prophylaxis: TEDs, SCDs, ASA Discharge Planning Discharge Planning: home with home health Pain Management: Oxycontin, PO Tylenol, Oxy IR DVT Prophylaxis: TEDs, ASA Therapy: Physical Therapy, Occupational Therapy
[2017-05-09] MEDS ORDERED: RXC5 PO (12:59)
[2017-05-09] MEDS ORDERED: ASPEC81 PO (12:59)
[2017-05-09] MEDS ORDERED: OXYSR10 PO (12:59)
[2017-05-09 14:09] VITALS: BP 149/82; PULSE 73; TEMP 36.6; O2SAT 97
--- NOTE | 2017-05-22 09:50 | DISCHARGE SUMMARY ---
HISTORY OF PRESENT ILLNESS: This is a 66-year-old male patient of Dr. Longoria, complaining of chronic left hip pain, longstanding, progressively getting worse. The patient has end-stage osteoarthritis per clinical and radiographic exams. He wishes to proceed with a left total hip arthroplasty. 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 Alcohol abuse. POSTOPERATIVE COURSE: The patient underwent a left total hip arthroplasty on 05/07/2017. He was followed closely with medical consultation, DVT prophylaxis in the form of aspirin, pain control and physical therapy. The patient did very well postoperatively and was discharged home on postoperative day #2. PHYSICAL EXAMINATION: On discharge, left hip Silverlon dressing was clean, dry and intact. There was no redness or drainage. There was no calf tenderness. Negative Homans sign. Neurologically and neurovascularly, he is intact in his left lower extremity. DIAGNOSES: Status post left total hip arthroplasty with a history of hypertension, sleep apnea, osteoarthritis, spine problems, sciatica, acid reflux, removal of right kidney and alcohol abuse. PLAN: The patient was discharged home with home health services. He will continue his preadmission medications including the addition of pain medications and aspirin for DVT prophylaxis. He will follow up as scheduled in the office with Dr. Longoria. He will go home with home health services.
== END 2017-05-09 15:00 | disposition home health service (06) | DRG 470 ==
LOC: C.ACU 05:25 → C.3E 07:23 → ENRESERV 10:27
PROVIDERS: ADMIT Orthopaedic Surgery Sports Medicine; ATTEND Orthopaedic Surgery Sports Medicine
PROC: 0LQK0ZZ Repair Left Hip Tendon, Open Approach (ICD-10-PCS; principal; 2017-05-07 07:00)
PROC: 0SRB0JZ Replacement of Left Hip Joint with Synthetic Substitute, Open Approach (ICD-10-PCS; principal; 2017-05-07 07:00)
DX: M16.12 Unilateral primary osteoarthritis, left hip (principal); E87.1 Hypo-osmolality and hyponatremia; S73.192A Other sprain of left hip, initial encounter; Z90.5 Acquired absence of kidney; I10 Essential (primary) hypertension; G47.30 Sleep apnea, unspecified; F10.10 Alcohol abuse, uncomplicated; N40.1 Benign prostatic hyperplasia with lower urinary tract symptoms; X58.XXXA Exposure to other specified factors, initial encounter; Y92.019 Unspecified place in single-family (private) house as the place of occurrence of the external cause; Z79.899 Other long term (current) drug therapy